=== PATIENT | female | born 1985 | race Caucasian/White ===

== ENCOUNTER 2023-03-09 22:13 | Emergency (ER) | payer OTHER ==
[2023-03-09] MEDS ORDERED: Lidocaine 1% 5 ML VIAL INJECT ONE (22:17)
== END 2023-03-09 22:46 | disposition home or self-care (01) ==
LOC: JP.ED 22:13
DX: S61.032A Puncture wound without foreign body of left thumb without damage to nail, initial encounter (principal); W45.8XXA Other foreign body or object entering through skin, initial encounter
CPT/HCPCS: 99282